=== PATIENT | female | born 2005 | race African-American/Black ===

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

== ENCOUNTER 2025-07-16 14:06 | Emergency (ER) | payer MEDICAID, OTHER ==
[~2025-07-16] VITALS: Ht 167.6 cm; Wt 131.0 kg
[2025-07-16 14:07] VITALS: TEMP 98.3; O2SAT 98
[2025-07-16 15:26] LABS: BASOPHILS % 1.2 % (0.0-2.0); EOSINOPHILS % 1.6 % (0.0-5.0); HEMATOCRIT. 33.3 % (36.0-48.0); HEMOGLOBIN. 10.2 g/dL (12.0-16.0); LYMPHOCYTES % 28.3 % (20.0-50.0); MEAN PLATELET VOLUME 8.9 fl (7.4-10.4); MONOCYTES % 9.9 % (2.0-8.0); NEUTROPHILS % 59.0 % (40.0-76.0); PLATELET 252 x1000/uL (130-400); RED BLOOD CELL COUNT 4.44 mill/uL (4.2-5.4); RED CELL DISTRIBUTION WIDTH 17.8 % (11.6-14.6)
[2025-07-16 15:34] LABS: INR 1.1
[2025-07-16 15:38] LABS: CREATININE 0.8 mg/dL (0.6-1.0); UREA NITROGEN BLOOD 6 mg/dL (9-23)
[2025-07-16 15:41] LABS: B-HCG QUANTITATIVE < 1 mIU/mL (<6)
[2025-07-16 17:00] VITALS: BP 138/76; PULSE 82; RESP 18; O2SAT 100
== END 2025-07-16 17:12 | disposition home or self-care (01) ==
LOC: ER 14:06
DX: O03.4 Incomplete spontaneous abortion without complication (principal); N93.9 Abnormal uterine and vaginal bleeding, unspecified; D64.9 Anemia, unspecified; Z3A.00 Weeks of gestation of pregnancy not specified
CPT/HCPCS: 36415; 76830; 76856; 80048; 84702; 85025; 99284